=== PATIENT | male | born 1975 | race Caucasian/White ===

== ENCOUNTER 2022-02-23 03:19 | Observation (INO) | payer OTHER, SELFPAY ==
[2022-02-23] VITALS (16 sets, daily range): BP systolic 109–166; BP diastolic 66–111; PULSE 51–86; RESP 15–21; TEMP 36.5–37.2; O2SAT 92–100; BMI 28.8; BMI 31.1
--- NOTE | 2022-02-23 03:31 | CT_ITS ---
STUDY: CT ABDOMEN AND PELVIS WITH CONTRAST REASON FOR EXAM: Male, 46 years old. pain RADIATION DOSAGE (If Supplied By Facility): CTDIvol = ( 17.96 ) mGy, DLP = ( 1284.05 ) mGycm TECHNIQUE: Transaxial images were obtained from the dome of the diaphragm to the symphysis pubis without oral contrast. IV 100mL Isovue-300 was administered. Sagittal and coronal images were reconstructed. Individualized dose optimization techniques were used for this CT. COMPARISON: None. FINDINGS: LOWER CHEST: Dependent atelectasis. LIVER: Several small cysts, largest 2.5 cm. GALLBLADDER/BILE DUCTS: Gallbladder distended, prominent wall with mild adjacent stranding. Questionable noncalcified stone in the gallbladder neck. PANCREAS: Relatively enlarged head and uncinate process with minimal adjacent stranding. SPLEEN: Unremarkable. ADRENAL GLANDS: Unremarkable. KIDNEYS / URETERS: Unremarkable. BOWEL / MESENTERY: Dilated duodenum second through fourth portion mildly dilated small bowel in the upper to mid abdomen. No definite transition zone. Scattered diverticula in the colon. No bowel obstruction. APPENDIX: Identified and normal. No evidence of acute appendicitis. PERITONEUM: No free air. No free fluid. VESSELS: Abdominal aorta is normal caliber. RETROPERITONEUM: Unremarkable. REPRODUCTIVE ORGANS: Unremarkable. BLADDER: Unremarkable. ABDOMINAL WALL: Unremarkable. BONES: Bilateral pars defects at L5 with grade 1 spondylolisthesis at L5-S1, and degenerative changes. OTHER: None. CT/Abdomen/Pelvis W IV Cont ONLY IMPRESSION: Findings suggest acute cholecystitis. Ultrasound correlation may be helpful for confirmation. Mild relatively enlarged pancreatic head questionable mild component of pancreatitis. Follow-up recommended. Mildly dilated duodenum and proximal small bowel ileus versus enteritis. Electronically Signed: Maryanne Villanueva MD at 4:35 EDT ,
--- NOTE | 2022-02-23 03:31 | EKG12_ITS ---
Test Reason : CP Blood Pressure : / mmHG Vent. Rate : 063 BPM Atrial Rate : 063 BPM P-R Int : 178 ms QRS Dur : 102 ms QT Int : 394 ms P-R-T Axes : 044 080 057 degrees QTc Int : 403 ms Normal sinus rhythm Normal ECG Confirmed by JAMEL MEDEROS MD ([id number]), newspaper or periodical editor GEE HERNANDEZ ([id number]) on 02/25/2022 1:15:40 PM Referred By: PL Confirmed By:JAMEL MEDEROS MD
--- NOTE | 2022-02-23 03:32 | ED.VIS.CHEST ---
HPI History of Present Illness Chief Complaint: Chest Pain Informant: patient Narrative Narrative: Patient complains of primary epigastric pain. It started about 1930 yesterday. Therefore, its been going on about 8 hours. It initially was waxing and waning but never went away. He tried to sleep. He got about 40 minutes but then he woke up. It is worse now. He has some nausea but no vomiting. He is not short of breath when he takes a deep breath his abdomen is more sore. But he does not have chest pain. The pain is in epigastric and radiates to both sides. It does not go through to his back. It really does not go up into his chest. No fevers or chills. No diaphoresis. He ate hibachi prior to this. He denies history of biliary disease. He is a smoker but he has no high blood pressure, diabetes, cholesterol or family history of heart disease. No history of prior abdominal surgery. Nothing really makes this better. Pressing on it does make it worse. PFSH PFSH Medical History Acute chest pain Chest pain Shortness of breath Tobacco dependence Medical History no medical history Home Medications NK 02/23/22 [History Last Taken Unknown] Allergy/AdvReac Type Severity Reaction Status Date / Time No Known Allergies Allergy Verified 08/26/17 04:22 Family History Grandmother Myocardial infarction Hypertension Surgical History H/O knee surgery Social History Smoking Status: Current every day smoker tobacco type: cigarettes alcohol intake: never substance use type: does not use ROS ROS ED Constitutional Constitutional ED: Denies chills or fever(s) Eyes Eyes: Denies blurry vision ENT ENT ED: Denies rhinorrhea or sore throat Cardiovascular Cardiovascular: Denies chest pain, palpitations or racing heartbeat Respiratory/Chest Respiratory/Chest: Denies cough or sputum Gastrointestinal Gastrointestinal: Reports abdominal pain and nausea; Denies constipation, diarrhea, melena or vomiting Genitourinary Genitourinary ED: Denies dysuria Musculoskeletal Musculoskeletal: Denies back pain or myalgias Integumentary Denies rash Neurologic Neurologic: Denies headache(s) Psychiatric Psychiatric: Denies anxiety or depression Endocrine Endocrinology: Denies polydipsia or polyuria Hematologic/Lymphatic Hematologic/Lymphatic: Denies easy bleeding or easy bruising Allergic/Immunologic Allergic/Immunologic ED: Denies urticaria EXAM Physical Exam Const Vital Signs: 02/23/22 03:20 Temperature 98.1 F Temperature Source Temporal Pulse Rate 64 Respiratory Rate 21 H Blood Pressure 132/83 H Blood Pressure Mean 99 Pulse Ox 92 Oxygen Delivery Method Room Air Positive well nourished and well developed Constitutional Narrative: Patient does look slightly uncomfortable. General Appearance ED: well developed HEENT Reports moist mucous membranes normocephalic Eyes General Eye ED: Negative for pale conjunctiva or scleral icterus Neck no JVD Chest Wall inspection of chest normal and palpation of chest normal Chest: Negative for tenderness Resp normal respiratory effort and clear to auscultation bilaterally Effort and Inspection: Negative for respiratory distress Auscultation: Negative for rales, rhonchi or wheezes Cardio regular rate and regular rhythm GI normal to inspection, nondistended, normoactive bowel sounds and soft to palpation GI Narrative: Bowel sounds are normal. He does have tenderness in the epigastric. He has right upper quadrant tenderness. Very minimal left upper quadrant. He states when I press in the lower abdomen he feels it in the upper abdomen but he is not tender down low. There is no rebound or guarding or mass felt Back/Spine no CVA tenderness Extremity normal to inspection General Extremety ED: Negative for edema or tenderness General Extremity: Negative for edema Neuro Sensorium / Orientation: awake and alert Psych mental status grossly normal Skin no rashes or lesions noted General Skin Exam: Negative for jaundice MDM MDM MDM Narrative Medical decision making narrative: Patient's blood work is actually quite normal. White count hemoglobin and platelets are normal. Electrolytes show some mild elevation of his glucose but otherwise essentially normal. Liver function test are not elevated. Troponin is negative despite over 8 hours of symptoms. Lipase is negative. His CAT scan does show a stone in the gallbladder neck, slight thickening of the wall and some pericholecystic stranding. There is also hinting of either ileus or enteritis with duodenum mildly distended. Although this patient's labs are normal, he does have pain, nausea, dry heaves and findings consistent with acute cholecystitis. His volunteers that he has been having episodes of a lower chest pain that she was wondering may be related to gallbladder. I discussed the case with Dr. Kramer. Patient will be admitted. Plan will be cholecystectomy later today. Lab Data Attestation: I reviewed the patient's lab results. Labs: Laboratory Results - last 24 hr 02/23/22 02/23/22 03:25 03:25 WBC 10.6 RBC 5.21 Hgb 15.6 Hct 45.7 MCV 87.7 MCH 29.9 MCHC 34.1 RDW Std Deviation 39.5 RDW Coeff of Sharon 12.2 Plt Count 213 MPV 11.0 Immature Gran % (Auto) 0.300 Neut % (Auto) 74.3 H Lymph % (Auto) 18.0 L [place] % (Auto) 5.9 Eos % (Auto) 1.1 Baso % (Auto) 0.4 Absolute Neuts (auto) 7.9 H Absolute Lymphs (auto) 1.91 Nucleated RBC % 0 Sodium 140 Potassium 3.9 Chloride 109 H Carbon Dioxide 25.0 Anion Gap 6 BUN 14 Creatinine 1.16 Estim Creat Clear Calc 79.57 Est GFR (MDRD) Af Amer 87 Est GFR (MDRD) Non-Af 72 BUN/Creatinine Ratio 12.1 Glucose 157 H Calcium 8.6 Total Bilirubin 0.30 AST 14 L ALT 29 Alkaline Phosphatase 69 Troponin I High Sens < 3 L Total Protein 7.0 Albumin 3.7 Globulin 3.3 Albumin/Globulin Ratio 1.1 Lipase 182 Radiography Diagnostic Testing: Clinical Impression(s) from Imaging Studies Abdomen/Pelvis CT 02/23/22 03:31 IMPRESSION: Findings suggest acute cholecystitis. Ultrasound correlation may be helpful for confirmation. Mild relatively enlarged pancreatic head questionable mild component of pancreatitis. Follow-up recommended. Mildly dilated duodenum and proximal small bowel ileus versus enteritis. Electronically Signed: Maryanne Villanueva MD at 4:35 EDT , EKG Initial EKG: Comments: EKG done for epigastric pain read by me shows normal sinus rhythm with a heart rate of 63. No ectopy. No acute ST elevation or depression and he was having symptoms during this EKG. AK interval, QRS duration and QTC normal Discharge Plan Triage Chief Complaint: Chest Pain ED Provider: Jesus Stevens Dx/Rx/DC Orders Clinical Impression: Acute cholecystitis Prescriptions: No Action NK RF: 0 Primary Care Provider: Care Physician,No Primary Referrals: Care Physician,No Primary [Primary Care Provider] - Disposition Disposition: Acute Care Hospital [facility]
[2022-02-23 03:37] LABS: Absolute Lymphocyte Count 1.91 X10^3/uL (0.83-4.51); Absolute Neutrophil Count 7.9 X10^3/uL (2.0-7.7); Basophil# 0.04 X10^3/uL; Basophil% 0.4 % (0-1); Eosinophil# 0.12 X10^3/uL; Eosinophils% 1.1 % (0-5); Hematocrit 45.7 % (40-54); Hemoglobin 15.6 g/dL (13.0-16.5); Lymphocyte # 1.91 X10^3/ul (0.83-4.51); Mean Corp Hgb Conc 34.1 g/dL (32-36); Mean Corpuscular Hgb 29.9 pg (27.0-32.0); Mean Corpuscular Volume 87.7 fL (80-94); Monocyte# 0.63 X10^3/uL; Monocyte% 5.9 % (0-10); NRBC Flagged by Analyzer 0 % (0-5); Neutrophil # 7.88 X10^3/uL (2.7-7.7); Neutrophil % 74.3 % (47-70); Platelet Count 213 K/mm3 (150-450); RBC Distribution Width CV 12.2 % (11.6-14.6); RBC Distribution Width SD 39.5 fl (35.1-43.9); Red Blood Count 5.21 M/mm3 (4.6-6.2); White Blood Count 10.6 K/mm3 (4.4-11.0)
[2022-02-23] MEDS: Ondansetron 4 MG/2 ML Vial IV (03:38)
[2022-02-23] MEDS: 0.9% Normal Saline 1,000 ML 1000 ML IV (03:38)
[2022-02-23] MEDS: Morphine 4 MG/ML Syringe IV ×2 (03:39→17:44)
[2022-02-23 04:00] LABS: ALB/GLOB Ratio 1.1 RATIO (0.9-2.4); AST(SGOT) 14 U/L (15-37); Alanine Aminotransfer ALT/SGPT 29 U/L (16-61); Albumin, Serum 3.7 g/dL (3.2-5.0); Alkaline Phosphatase 69 U/L (45-117); Anion Gap 6 (5-15); BUN 14 mg/dL (7-18); BUN/Creat Ratio 12.1 RATIO (10-20); Calcium,Total 8.6 mg/dL (8.5-10.1); Chloride 109 mmol/L (98-107); Creatinine, Serum 1.16 mg/dL (0.70-1.30); EST Glomerular Filtration Rate 72 mL/min (>60); Est Glom Filt Rate - Afr Amer 87 mL/min (>60); Estimated Creatinine Clearance 79.57 ml/min; Globulin 3.3 g/dL (2.2-4.2); Glucose 157 mg/dL (74-106); Lipase 182 U/L (73-393); Potassium 3.9 mmol/L (3.5-5.1); Sodium Level 140 mmol/L (136-145); Troponin-I HS < 3 pg/mL (3.0-78.0)
[2022-02-23] MEDS: Morphine 2 MG/ML Syringe IV (06:25)
[2022-02-23] MEDS: 0.9% Normal Saline 1,000 ML 125 ML IV ×2 (06:25→12:34)
--- NOTE | 2022-02-23 06:59 | PCM.HP.STD ---
HPI - General General Date of Admission: 02/23/22 HPI Narrative HAYLEY BARRON, is a 46 M who presents With lower chest pain that started yesterday. The patient did have nausea but no vomiting. He denies fevers or chills. Patient does state the pain radiates down both sides of his abdomen. He has never had pain like this before. [facility] Medical History Acute chest pain Chest pain Shortness of breath Tobacco dependence Medical History no medical history Home Medications NK 02/23/22 [History Last Taken Unknown] Allergy/AdvReac Type Severity Reaction Status Date / Time No Known Allergies Allergy Verified 08/26/17 04:22 Family History Grandmother Myocardial infarction Hypertension Surgical History H/O knee surgery Social History Smoking Status: Current every day smoker tobacco type: cigarettes alcohol intake: never substance use type: does not use ROS Constitutional Constitutional: Denies anorexia or fatigue Eyes Eyes: Denies blurry vision ENT HEENT: Denies abnormal hearing Cardiovascular Cardiovascular: Reports chest pain Respiratory/Chest Respiratory/Chest: Denies cough Gastrointestinal Gastrointestinal: Reports abdominal pain and nausea; Denies change in bowel habits, melena, rectal bleeding or vomiting Genitourinary Genitourinary: Denies change in urinary stream Musculoskeletal Musculoskeletal: Denies abnormal gait Integumentary Integumentary: Denies jaundice Neurologic Neurologic: Denies dizziness Psychiatric Psychiatric: Denies anxiety Endocrine Endocrinology: Denies flushing Hematologic/Lymphatic Hematologic/Lymphatic: Denies easy bleeding Vital Signs Vital Signs Vital Signs: 02/23/22 03:20 02/23/22 06:02 02/23/22 06:30 Temperature 98.1 F 98.7 F 97.8 F Temperature Source Temporal Temporal Oral Pulse Rate 64 86 69 Respiratory Rate 21 H 20 H 16 Blood Pressure 132/83 H 115/79 110/70 Blood Pressure Mean 99 91 83 Blood Pressure Source Monitor Blood Pressure Position Semi-Fowlers Blood Pressure Location Left Arm Pulse Ox 92 99 96 Oxygen Delivery Method Room Air Room Air Room Air Weight Weight: 211 lb 3.245 oz Body Mass Index (BMI) 31.1 Physical Exam Const oriented x3 and no apparent distress Resp normal respiratory effort Cardio regular rate and regular rhythm GI soft to palpation Inspection: Negative for abdominal distention Palpation: tender epigastric Extremity normal to inspection Results Lab / Micro Data Result Diagrams: 02/23/22 03:25 02/23/22 03:25 Labs: Laboratory Results - last 24 hr 02/23/22 03:25: WBC 10.6, RBC 5.21, Hgb 15.6, Hct 45.7, MCV 87.7, MCH 29.9, MCHC 34.1, RDW Std Deviation 39.5, RDW Coeff of Sharon 12.2, Plt Count 213, MPV 11.0, Immature Gran % (Auto) 0.300, Neut % (Auto) 74.3 H, Lymph % (Auto) 18.0 L, [place] % (Auto) 5.9, Eos % (Auto) 1.1, Baso % (Auto) 0.4, Absolute Neuts (auto) 7.9 H, Absolute Lymphs (auto) 1.91, Nucleated RBC % 0 02/23/22 03:25: Sodium 140, Potassium 3.9, Chloride 109 H, Carbon Dioxide 25.0, Anion Gap 6, BUN 14, Creatinine 1.16, Estim Creat Clear Calc 79.57, Est GFR (MDRD) Af Amer 87, Est GFR (MDRD) Non-Af 72, BUN/Creatinine Ratio 12.1, Glucose 157 H, Calcium 8.6, Total Bilirubin 0.30, AST 14 L, ALT 29, Alkaline Phosphatase 69, Troponin I High Sens < 3 L, Total Protein 7.0, Albumin 3.7, Globulin 3.3, Albumin/Globulin Ratio 1.1, Lipase 182 Micro: Microbiology 02/23/22 06:00 Interface Orders SARS-CoV-2 Antigen (Rapid) - Final Radiology Impression Abdomen/Pelvis CT 02/23/22 03:31 IMPRESSION: Findings suggest acute cholecystitis. Ultrasound correlation may be helpful for confirmation. Mild relatively enlarged pancreatic head questionable mild component of pancreatitis. Follow-up recommended. Mildly dilated duodenum and proximal small bowel ileus versus enteritis. Electronically Signed: Maryanne Villanueva MD at 4:35 EDT , Assessment & Plan Assessment/Plan (1) Acute cholecystitis: PLAN: The patient has epigastric and lower chest pain that started yesterday. Cardiac work-up was normal in the emergency room. Patient has CT scan which showed some stranding and dilation of the gallbladder with a stone in the neck of the gallbladder. Patient also has a mildly elevated white count with left shift. I admitted the patient and started him on antibiotics and IV fluids. I will plan for laparoscopic cholecystectomy this afternoon. I discussed the procedure in detail with the patient. I discussed the risks, benefits, and alternatives of the procedure. I discussed the risks including but not limited to bleeding, infection, injury to surrounding organs such as the liver, bile duct, bowels. I did discuss the possibility of having to convert to an open procedure as well as the possibility that if any injuries occurred this may necessitate further surgery at a tertiary care center. Humphrey Kramer MD Pager: [facility] [address] [place] [address], [address] [place] [address] Office:
--- NOTE | 2022-02-23 13:30 | GALL_PTH ---
PATIENT: HAYLEY BARRON LOC: MS3 U#:[id number] AGE/SX: 46/M ROOM: CA318 RE02/23/[address]: Dr. Humphrey Kramer MD : 1975 BED: 1 DIS: 02/24/2022 SPEC #: [id number] RECD: 02/25/22 07:46 STATUS: KATHY REAniya #: [id number] DEEDEE: 02/23/22 13:[address]: Humphrey Kramer DEPT: SURGICAL PATHOLOGY RECD BY: Gena Nolasco ENTERED: 02/25/22 09:10 SP TYPE: MARILYN SHEIKH DR: No Primary Care Phys Tissues: Gallbladder, NOS Procedures: Surgery Specimen Level III HEADER OPERATION: Laparoscopic cholecystectomy with IOC PRE-OP DIAGNOSIS: Acute cholecystitis TISSUE SUBMITTED: Gallbladder MICROSCOPIC DIAGNOSIS Gallbladder, cholecystectomy: Chronic cholecystitis and cholelithiasis. Benign pericystic lymph node. AM:werner 02/26/2022 MICROSCOPIC DESCRIPTION Slides are reviewed. GROSS DESCRIPTION Received is one container labeled with the patient's name and designated gallbladder. The specimen consists of a gallbladder measuring 9.5 x 3.5 x 3.5 cm. The external surface is smooth and glistening. Focally, it is granular, hemorrhagic and contains cautery artifact. The lumen of the gallbladder contains a large amount of green mucoid bile and a single crystalline yellow-robin calculus measuring 1.6 cm in diameter. The mucosa is bile-stained and without any mass lesions. The gallbladder wall averages 0.1 cm in thickness and is free of mass lesions. A pericystic nodule measuring 1.3 cm is present and grossly resembles a lymph node. Bodily Injury Adjuster sections of the gallbladder and the cystic duct at margin of resection are submitted in one cassette. / AM:werner 02/25/2022 TC:3 CPT: 10221
--- NOTE | 2022-02-23 13:47 | RAD_ITS ---
CLINICAL HISTORY: Male, 46 years old. Abdominal pain PROCEDURE: CHOLANGIOGRAM - intraoperative FLUOROSCOPY TIME (if supplied): (7.7) minutes/seconds TECHNIQUE: (All elements of maximal sterile barrier technique followed, including US elements as applicable) 7.7 seconds of fluoroscopy of the abdomen was utilized and operating room during an intraoperative cholangiogram and a single cine run is submitted for interpretation. Next FINDINGS: A cannula seen within the cystic duct remnant. There is no evidence of filling defect within the common bile duct to suggest common bile duct stone. No stricture or dilatation. Passage of contrast through the ampulla into the duodenum. RAD/Cholangiogram/ O R,Initial IMPRESSION: No common bile duct stone. Electronically Signed: Vito Zarate MD at 14:31 EDT ,
[2022-02-23] MEDS: Bupivacaine Mpf 0.5% 30 ML VIAL (14:20)
--- NOTE | 2022-02-23 14:21 | PCM.OPRPT ---
Problems Associated Problem List Diagnoses (1) Acute cholecystitis: Report of Operation Date of Procedure: 02/23/22 Pre-Operative Diagnosis: Acute cholecystitis Post-Operative Diagnosis: Same Surgery/Procedure Performed:: Laparoscopic cholecystectomy with cholangiogram Specimen's removed: Gallbladder and contents Description of Procedure: After obtaining informed consent patient was brought back to the operating room. General anesthesia was induced. The abdomen was prepped and draped in usual sterile fashion. A small midline incision was made superior to the umbilicus and deepened to the level of fascia. The fascia was elevated and incised. Next the peritoneum was elevated and incised in the same fashion. Finger sweep was performed and the Weeks trocar was placed into the abdomen. The balloon was inflated. The abdomen was inflated to 15 mmHg. Next a camera was introduced into the abdomen and the abdomen was inspected. Next under direct visualization three 5-mm ports were placed one subxiphoid and 2 subcostal. Next the gallbladder was elevated and retracted toward the right shoulder. The peritoneum was stripped from the gallbladder. The infundibulum was located and retracted laterally. Next the triangle of Calot was dissected and the cystic duct and cystic artery were identified. Cholangiograms were performed. The Ventura clamp was used to clamp across the infundibulum and the catheter needle was inserted into the gallbladder. Under fluoroscopy contrast was instilled into the gallbladder and the common duct, cystic duct as well as proximal hepatic ducts were identified. There was good filling of the duodenum. There were no filling defects noted in the common bile duct. The clamp was removed as well as the needle and the infundibulum was grasped once more. Three hemolock clips were placed across the cystic duct. The cystic duct was then divided leaving 2 clips on the stump. The cystic artery was clipped and divided in the same fashion. The hook cautery was then used to take the gallbladder off of the gallbladder bed. Hemostasis was obtained. Gallbladder fossa was irrigated and no active bleeding or bile leakage was noted. Next the camera was introduced in the subxiphoid port. An Endopouch bag was placed through the umbilical port and the gallbladder was placed into it. The gallbladder was then removed through the umbilical incision. The camera was then reinserted through the umbilical port. The gallbladder fossa was inspected once more and noted to be hemostatic with no leaking bile. The abdomen was suctioned dry. The 5 mm ports were removed under direct visualization. The umbilical port was then removed and the air was removed from the abdomen. Next using an 0 Vicryl suture the umbilical fascia was closed in a [id number] fashion. The umbilical port site was irrigated local anesthetic was administered to all the incisions. All the incisions were closed with interrupted subcuticular 4-0 Monocryl sutures followed by Steri-Strips and dressings. The patient was awoken and taken to PACU in stable condition. Admit VTE Documentation VTE Mechan Device Prophylaxis: SCD's
--- NOTE | 2022-02-23 14:22 | EX.PCM.DISCH ---
Discharge Instructions Procedure Gallbladder Diet Discharge Diet: Light diet - advance as tolerated Activity Discharge Activity: May Not Drive (for 2-3 days or while taking narcotic pain medications.) and - (Do not drive, work heavy equipment or sign legal documents for 24 hours.) May shower in (days): 1 Lifting Restrictions: 20 lbs for 2 weeks Additional Activity Instructions:: Pain medication may cause nausea. You should typically eat light foods as you take your pain medications. Pain medication may also cause constipation. If this is a problem for you, please discuss with your doctor. Dressing / Incision Call your doctor if your incision/area has: Continuous Slow Oozing, Sudden Increased Bleeding, Increased Pain/ Swelling, Increased Redness and Foul Smelling Discharge Call your doctor if you observe: Fever of 101 or Higher Suture Line Care: Avoid Pulling/Pushing and Avoid Pinching/Bending Remove Dressing in: 2 days Additional Dressing/Incision Instructions:: Leave operative bandaids on for 2 days. When you remove dressing, leave Steri-Strips on until your follow-up appointment, or until the Steri-Strips fall off on their own. Follow Up Care Please Follow Up With: Humphrey Kramer MD When: Please call to schedule 2 week follow up appointment. [phone] Test Results: Test results from this visit will be discussed in further detail at your follow-up appointment, if applicable. Discharge Plan Admission Admit Date/Time: 02/23/22 05:07 Attending Provider: Humphrey Kramer Primary Care Provider: Elijah Physician,Zoila Primary Discharge Orders/Prescriptions Prescriptions: New oxycodone 5 mg Tablet 5 - 10 mg PO Q4H PRN PRN (Reason: Pain Score 4-10/10) 5 Days Qty: 30 RF: 0 Referrals / Follow Up: Care Physician,No Primary [Primary Care Provider] - Disposition Disposition (needs filled in before D/C Order can be placed): Home, Self Care
[2022-02-23] MEDS: Lactated Ringers 1,000 ML 100 ML IV (15:23)
[2022-02-23] MEDS: 0.9% Saline Lock 10 ML Syringe IV ×2 (17:44→19:39)
[2022-02-23] MEDS: oxyCODONE 5 MG Tablet PO (19:39)
[2022-02-24] MEDS: oxyCODONE 5 MG Tablet PO ×3 (01:20→10:07)
[2022-02-24] MEDS: Lactated Ringers 1,000 ML 100 ML IV (03:41)
[2022-02-24 03:50] VITALS: BP 139/84; PULSE 57; RESP 16; TEMP 36.8; O2SAT 93
[2022-02-24] MEDS: 0.9% Saline Lock 10 ML Syringe IV (05:13)
[2022-02-24 08:29] VITALS: BP 116/89; PULSE 45; RESP 16; TEMP 37.1; O2SAT 96
== END 2022-02-24 11:07 | disposition home or self-care (01) ==
LOC: ED 05:19 → MS3 05:28
PROVIDERS: Admitting Provider Surgery; Emergency Provider Emergency Medicine; Visit Provider Surgery
PROC: (CPT 47610; principal; 2022-02-23 13:30)
DX: K80.12 Calculus of gallbladder with acute and chronic cholecystitis without obstruction (principal); F17.210 Nicotine dependence, cigarettes, uncomplicated
CPT/HCPCS: 47563; 00790; 74177; 74300; 76000; 80053; 83690; 84484; 85025; 87426; 88304; 93005; 96361; 96365; 96366; 96375; 96376; 99285; J7030; J7050; J7120; Q9967; A4216; J2405

== ENCOUNTER 2025-04-07 12:42 | Emergency (ER) | payer OTHER, SELFPAY ==
[2025-04-07 12:42] VITALS: BP 142/93; PULSE 65; RESP 14; TEMP 36.6; O2SAT 98; BMI 27.6
[2025-04-07 13:07] LABS: Hematocrit 45.9 % (40-54); Hemoglobin 16.1 g/dL (13.0-16.5); Immature Granulocytes Count 0.020 X10^3/uL (0.0-0.0); Mean Corp Hgb Conc 35.1 g/dL (32-36); Mean Corpuscular Volume 86.6 fL (80-94); Mean Platelet Vol. 11.0 fl (6.2-12.0); NRBC Flagged by Analyzer 0 % (0-5); Platelet Count 202 K/mm3 (150-450); RBC Distribution Width CV 12.3 % (11.6-14.6); RBC Distribution Width SD 39.0 fl (35.1-43.9); Red Blood Count 5.30 M/mm3 (4.6-6.2); White Blood Count 7.5 K/mm3 (4.4-11.0)
[2025-04-07 13:39] LABS: Anion Gap 11 (5-15); BUN 8 mg/dL (4-19); BUN/Creat Ratio 7.5 RATIO (10-20); Calcium,Total 9.2 mg/dL (7.6-11.0); Carbon Dioxide 22.9 mmol/L (21.0-32.0); Chloride 106 mmol/L (98-108); Estimated Creatinine Clearance 85.10 ml/min (50-250); Glucose 108 mg/dL (70-99); Potassium 3.9 mmol/L (3.3-5.1)
[2025-04-07 13:41] LABS: Troponin T High Sensitivity 8 ng/L (<=22)
--- OUTSIDE RECORDS SUMMARY | 2025-04-07 19:56 | XMS RPT_ITS | CCD ---
Author Organization [facility] Care Team Providers Care Health Care Consultant Name Role Phone Care Physician, No Primary Primary Care Provider Unavailable Dr. Jesus Stevens Emergency Provider [phone] Dr. Humphrey Kramer Admit Provider Dr. Humphrey Kramer Attending Provider [phone] Dr. Humphrey Kramer Other Provider Care Physician, No Primary Referring Unava illorena Care Physician, No Primary Primary Care Andres Samayoa Attending Unavailable Care Physician, No Primary Primary Care Provider Unavailable Provider, Ed Physician Emergency Provider Unavai lable Medications Current Medications Medication Drug Class(es) Dates Sig (Normalized) Sig (Original) oxyCODONE hydrochloride 5 mg oral tablet (2 sources) Opioid Agonist Start: 02-23-2022 End: 03-10-2022 take 5-10 mg by mouth every four hours as needed Oxycodone Active 5 - 10 MG PO EVERY 4 HOURS NEEDED 30 5 February 23, 2022 2:22pm Problems Problem Classification Problem Date Documented Da te Episodic/Chronic Biliary tract disease (4 sources) Acute cholecystitis; Translations: [Acute cholecystitis] Episodic Nonspecific chest pain (4 sources) Acute chest pain; Translations: [Chest pain, unspecified] 10-21-2017 Episodic Other lower respiratory disease (2 sources) Dyspnea; Translations: [Shortness of breath] 10-21-2017 Episodic Substance-related disorders (2 sources) Tobacco dependence syndrome; Translations: [Nicotine dependence, unspecified, uncomplicated] 10-21-2017 Chronic Results Test Name Value Interpretation Reference Range Facility Absolute lymphocyte countOrd ered By: ED PROVIDER on 04-07-2025 Lymphocytes Auto (Unsp spec) [#/Vol] 1.86 10*3/uL 0.83-4.51 [facility] Absolute neutrophil countOrd ered By: ED PROVIDER on 04-07-2025 Neutrophils (Bld) [#/Vol] 5.0 10*3/uL 2.0-7.7 [facility] Automated lymphocyte count a s percentage of total leukocytesOrdered By: ED PROVIDER on 04-07-2025 Lymphocytes/100 WBC Auto (Unsp spec) 24.9 % 19-41 [facility] Basophil percentageOrdered B y: ED PROVIDER on 04-07-2025 Basophils/100 WBC (Bld) 0.4 % 0-1 [facility] Eosinophil percentageOrdered By: ED PROVIDER on 04-07-2025 Eosinophils/100 WBC (Bld) 0.8 % 0-5 [facility] Erythrocyte distribution wid th ratioOrdered By: ED PROVIDER on 04-07-2025 Erythrocyte distribution width (RBC) [Ratio] 12.3 % 11.6-14.6 [facility] Erythrocyte distribution wid th standard deviationOrdered By: ED PROVIDER on 04-07-2025 Erythrocyte distribution width (RBC) [Ratio] 39.0 fl 35.1-43.9 [facility] Hematocrit Auto (Bld) [Volum e fraction]Ordered By: ED PROVIDER on 04-07-2025 Hematocrit (Bld) [Volume fraction] 45.9 % 40-54 [facility] Hemoglobin measurementOrdere d By: ED PROVIDER on 04-07-2025 Hemoglobin (Bld) [Mass/Vol] 16.1 g/dL 13.0-16.5 [facility] Immature granulocytes/100 WB C Auto (Bld)Ordered By: ED PROVIDER on 04-07-2025 Immature granulocytes/100 WBC (Bld) 0.300 % 0.0-0.9 [facility] Comment on above: IG% - Immature Granu locytes (promyelocytes, myelocytes and metamyelocytes) > 1% indicates that a LEFT SHIFT is Present. MCV (mean corpuscular volume ) determinationOrdered By: ED PROVIDER on 04-07-2025 MCV (RBC) [Entitic vol] 86.6 fL 80-94 [facility] Mean corpuscular hemoglobin (MCH) determinationOrdered By: ED PROVIDER on 04-07-2025 MCH (RBC) [Entitic mass] 30.4 pg 27.0-32.0 [facility] Mean corpuscular hemoglobin concentration (MCHC) determinationOrdered By: ED PROVIDER on 04-07-2025 MCHC (RBC) [Mass/Vol] 35.1 g/dL 32-36 [facility] Mean platelet volume determi nationOrdered By: ED PROVIDER on 04-07-2025 Platelet mean volume (Bld) [Entitic vol] 11.0 fL 6.2-12.0 [facility] Monocyte percentageOrdered B y: ED PROVIDER on 04-07-2025 Monocytes/100 WBC (Bld) 6.0 % 0-10 [facility] Neutrophil percentageOrdered By: ED PROVIDER on 04-07-2025 Neutrophils/100 WBC (Bld) 67.6 % 47-70 [facility] Nucleated red blood cell per centageOrdered By: ED PROVIDER on 04-07-2025 Nucleated RBC/100 WBC (Bld) [Ratio] 0 % 0-5 [facility] Platelet countOrdered By: ED PROVIDER on 04-07-2025 Platelets (Bld) [#/Vol] 202 10*3/uL 150-450 [facility] RBC Auto (Bld) [#/Vol]Ordere d By: ED PROVIDER on 04-07-2025 RBC (Bld) [#/Vol] 5.30 10*6/uL 4.6-6.2 [facility] White blood cell (WBC) count Ordered By: ED PROVIDER on 04-07-2025 WBC (Bld) [#/Vol] 7.5 10*3/uL 4.4-11.0 [facility] Office Visit Reporton [address] [facility] [address] [place] [address] OFFICE VISIT Date of Service: 10/21/24 MR#: [id number] Acct: [id number] Patient: HAYLEY BARRON Rep #: [id number] : 1975 Provider: DARIEN White Age/Sex: 49/M Location: [facility] Status: Signed Intake Vital Signs 02/23/22 12:23 Height 5 ft 9 in Intake Visit Reasons: PE NON DOT DRUG SCREEN/ PRECISION PRODUCTS Chief Complaint: F/U Gallbladder Allergies No Known Allergies Allergy (Verified 03/10/22 08:02) Office Procedures [facility] Billing Sheet Testing Pre-Employment Drug Screen: Yes 11/11/24 1712 Date _ Andres Jane Signature: Date _ (if applicable) CC: Normal [facility] Absolute lymphocyte counton 02-23-2022 Lymphocytes Auto (Unsp spec) [#/Vol] 1.91 10*3/uL 0.83-4.51 [facility] Work Phone: Basophil percentageon 2021 Basophils/100 WBC (Bld) 0.4 % 0-1 [facility] Work Phone: Bilirubin [Mass/Vol] 0.30 mg/dL 0.20-1.00 [facility] Work Phone: Comment on above: For patients on eltr ombopag therapy, use of Dimension [place] TBIL is not recommended. Chloride [Moles/Vol] 109 mmol/L 98-107 [facility] Work Phone: Eosinophils/100 WBC (Bld) 1.1 % 0-5 [facility] Work Phone: Glucose [Mass/Vol] 157 mg/dL 74-106 [facility] Work Phone: Comment on above: Fasting Glucose resu lt greater than or equal to 126 mg/dL suggests DIABETES MELLITUS per A.D.A. criteria. Neutrophils (Bld) [#/Vol] 7.9 10*3/uL 2.0-7.7 [facility] Work Phone: Neutrophils/100 WBC (Bld) 74.3 % 47-70 [facility] Work Phone: Potassium [Moles/Vol] 3.9 mmol/L 3.5-5.1 [facility] Work Phone: Protein [Mass/Vol] 7.0 g/dL 6.4-8.2 [facility] Work Phone: Sodium [Moles/Vol] 140 mmol/L 136-145 [facility] Work Phone: WBC (Bld) [#/Vol] 10.6 10*3/uL 4.4-11.0 [facility] Work Phone: Blood erythrocytes count (nu mber/volume)on 02-23-2022 RBC (Bld) [#/Vol] 5.21 10*6/uL 4.6-6.2 [facility] Work Phone: Blood hemoglobin measurement (mass/volume)on 02-23-2022 Hemoglobin (Bld) [Mass/Vol] 15.6 g/dL 13.0-16.5 [facility] Work Phone: Blood lymphocytes/100 leukoc yteson 02-23-2022 Lymphocytes/100 WBC (Bld) 18.0 % 19-41 [facility] Work Phone: Blood monocytes/100 leukocyt eson 02-23-2022 Monocytes/100 WBC (Bld) 5.9 % 0-10 [facility] Work Phone: Blood platelet mean volumeon 02-23-2022 Platelet mean volume (Bld) [Entitic vol] 11.0 fL 6.2-12.0 [facility] Work Phone: Determination of erythrocyte mean corpuscular volume (MCV)on 02-23-2022 MCV (RBC) [Entitic vol] 87.7 fL 80-94 [facility] Work Phone: Hematocrit Auto (Bld) [Volum e fraction]on 02-23-2022 Hematocrit (Bld) [Volume fraction] 45.7 % 40-54 [facility] Work Phone: Laboratory - Chemistry and C hemistry - challengeon 02-23-2022 ALP [Catalytic activity/Vol] 69 U/L 45-117 [facility] Work Phone: ALT [Catalytic activity/Vol] 29 U/L 16-61 [facility] Work Phone: CO2 [Moles/Vol] 25.0 mmol/L 21.0-32.0 [facility] Work Phone: Globulin (S) [Mass/Vol] 3.3 g/dL 2.2-4.2 [facility] Work Phone: Lipase [Catalytic activity/Vol] 182 U/L 73-393 [facility] Work Phone: Urea nitrogen/Creatinine [Mass ratio] 12.1 mg/mg 10-20 [facility] Work Phone: Laboratory - Hematology and Cell countson 02-23-2022 Erythrocyte distribution width (RBC) [Entitic vol] 39.5 fL 35.1-43.9 [facility] Work Phone: Erythrocyte distribution width (RBC) [Ratio] 12.2 % 11.6-14.6 [facility] Work Phone: Immature granulocytes/100 WBC (Bld) 0.300 % 0.0-0.9 [facility] Work Phone: Comment on above: IG% - Immature Granu locytes (promyelocytes, myelocytes and metamyelocytes) > 1% indicates that a LEFT SHIFT is Present. MCH (RBC) [Entitic mass] 29.9 pg 27.0-32.0 [facility] Work Phone: Nucleated RBC/100 WBC (Bld) [Ratio] 0 % 0-5 [facility] Work Phone: MCHC Auto (RBC) [Mass/Vol]on 02-23-2022 MCHC (RBC) [Mass/Vol] 34.1 g/dL 32-36 [facility] Work Phone: No Panel Informationon 02-23 Estimated Creatinine Clearance Calc 79.57 ml/min [facility] Work Phone: Estimated GFR (MDRD) Amer 87 mL/min >60 [facility] Work Phone: Comment on above: GFR Calc Estimated GFR (MDRD) Non-Af Amer 72 mL/min >60 [facility] Work Phone: Comment on above: Non- GFR Calc Troponin I High Sensitivity < 3 pg/mL 3.0-78.0 [facility] Work Phone: Comment on above: Please Note: New Geno t Units and Gender Specific Reference Ranges. For more information see Policy Stat Procedure [place] High Sensitivity Troponin (TNIH) and attachments. Platelets bldon 02-23-2022 Platelets (Bld) [#/Vol] 213 10*3/uL 150-450 [facility] Work Phone: Serum or plasma albumin leanne urement (mass/volume)on 02-23-2022 Albumin [Mass/Vol] 3.7 g/dL 3.2-5.0 [facility] Work Phone: Serum or plasma albumin/glob ulin mass ratioon 02-23-2022 Albumin/Globulin [Mass ratio] 1.1 {ratio} 0.9-2.4 [facility] Work Phone: Serum or plasma calcium leanne urement (mass/volume)on 02-23-2022 Calcium [Mass/Vol] 8.6 mg/dL 8.5-10.1 [facility] Work Phone: Serum or plasma creatinine m easurement (mass/volume)on 02-23-2022 Creatinine [Mass/Vol] 1.16 mg/dL 0.70-1.30 [facility] Work Phone: Comment on above: The validity of the calculated GFR & GFRAA in patients over 70 years has not been determined. Clinical correlation is essential. Serum or plasma urea nitroge n measurement (mass/volume)on 02-23-2022 Urea nitrogen [Mass/Vol] 14 mg/dL 7-18 [facility] Work Phone: Thin prep Papanicolaou smear with manual screeningon 02-23-2022 Thin prep Papanicolaou smear with manual screening 14 U/L 15-37 [facility] Work Phone: Thin prep Papanicolaou smear with manual screening 6 5-15 [facility] Work Phone: Vital Signs Date Time Vital Sign Value Performing Clinician Brant mendez 04-07-2025 12:42-0400 Body height 175.26 cm No Primary Care Physician [facility] 04-07-2025 12:42-0400 Body mass index (BMI) [Ratio] 27.6 kg/m2 No Primary Care Physician [facility] 04-07-2025 12:42-0400 Body temperature 98 [degF] No Primary Care Physician [facility] 04-07-2025 12:42-0400 Body weight 84.7 kg No Primary Care Physician [facility] 04-07-2025 12:42-0400 Diastolic blood pressure 93 mm[Hg] No Primary Care Physician [facility] 04-07-2025 12:42-0400 Heart rate 65 /min No Primary Care Physician [facility] 04-07-2025 12:42-0400 Respiratory rate 14 /min No Primary Care Physician [facility] 04-07-2025 12:42-0400 SaO2% (BldA) [Mass fraction] 98 % No Primary Care Physician [facility] 04-07-2025 12:42-0400 Systolic blood pressure 142 mm[Hg] No Primary Care Physician [facility] 02-24-2022 08:29-0400 Body temperature 98.8 [degF] No Primary Care Physician [facility] Work Phone: 02-24-2022 08:29-0400 Diastolic blood pressure 89 mm[Hg] No Primary Care Physician [facility] Work Phone: 02-24-2022 08:29-0400 Heart rate 45 /min No Primary Care Physician [facility] Work Phone: 02-24-2022 08:29-0400 Respiratory rate 16 /min No Primary Care Physician [facility] Work Phone: 02-24-2022 08:29-0400 SaO2% (BldA) [Mass fraction] 96 % No Primary Care Physician [facility] Work Phone: 02-24-2022 08:29-040 Systolic blood pressure 116 mm[Hg] No Primary Care Physician [facility] Work Phone: 02-23-2022 12:23-040 Body height 175.26 cm No Primary Care Physician [facility] Work Phone: 02-23-2022 12:23-0400 Body mass index (BMI) [Ratio] 31.1 kg/m2 No Primary Care Physician [facility] Work Phone: 02-23-2022 12:-040 Body weight 95.8 kg No Primary Care Physician [facility] Work Phone: Encounters Encounter Date Encounter Type Care Provider Facility Start: 04-07-2025 End: 04-07-2025 Emergency department patient visit No Primary Care Physician -Emergency Department Work Phone: Start: 10-21-2024 End: 10-21-2024 ambulatory No Primary Care Physician Facility:[facility] Start: 02-23-2022 Non-patient / Non-visit No Krystal adrian Care Physician [facility] Start: 02-23-2022 End: 02-24-2022 Evaluation and management of inpatient No Primary Care Physician [facility] 3 Procedures Date Procedure Procedure Detail Performing Clinician Start: 02-23-2022 End: 02-23-2022 Viral antigen assay No Primary Care Physician Start: 02-23-2022 Cholangiogram No Primar y Care Physician Start: 02-23-2022 Fluoroscopic guidance N o Primary Care Physician Start: 02-23-2022 Total cholecystectom y and exploration of common bile duct No Primary Care Physician Start: 02-23-2022 Computed tomography of abdomen and pelvis with intravenous contrast No Primary Care Physician Plan of Treatment Date Care Activity Detail Author Start: 04-07-2025 [facility] Start: 04-07-2025 Plain chest X-ray Chest 1 View (Portable) [facility] Start: 04-07-2025 [facility] Anion gap in Serum o r Plasma [facility] BUN/Creatinine ratio [facility] Calcium [Mass/volume ] in Serum or Plasma [facility] Carbon dioxide, tota l [Moles/volume] in Central venous blood [facility] Creatinine [Mass/vol ume] in Serum or Plasma [facility] Glucose [Mass/volume ] in Serum or Plasma [facility] Measurement of renal function [facility] Patient referral [facility] Work Phone: Potassium measurement [facility] Serum chloride measurement [facility] Sodium measurement [facility] Troponin T.cardiac [Mass/volume] in Serum or Plasma by High sensitivity method [facility] Urea nitrogen [Mass/volume] in Serum or Plasma [facility] Payers Date Payer Category Payer Self-pay [id number] 2017 Unknown SELF PAY INSURANCE [id number] Private Health Insurance [id number] Private Health Insurance [id number] Unknown [id number] Social History Date Type Detail Facility Start: [facility]23-[facility]22 [facility] Work Phone: Start: 01-27-2014 None [facility] Start: 1975 Sex Assigned At Male [facility] Start: 02-23-2022 [facility] Medical Equipment Procedure Code Equipment Code Equipment Original Text Equipment Identifier Dates Total cholecystectomy with exploration of common bile duct Ligation clip, synthetic polymer, non-bioabsorbable [id number] [facility] Start: 02-23-2022 Total cholecystectomy with exploration of common bile duct Ligation clip, synthetic polymer, non-bioabsorbable [id number] FDA Start: 02-23-2022 Functional Status Date Assessment Result Facility 02-24-2022 Functional status Ambulates [facility] Work Phone: Mental Status Date Assessment Result Facility 02-24-2022 Cognitive function Voice/Name [facility] Work Phone: Evaluation note Note Date & Type Note Facility Evaluation note Diagnosis Onset Date Acute cholecystitis acute [facility] Work Phone: Evaluation note Note Date & Type Note Facility Evaluation note No assessment information availa ble [facility] Work Phone: Reason for referral (narrative) Note Date & Type Note Facility Reason for referral (narrative) No reason for referral information available [facility] Work Phone: Chief Complaint and Reason for Visit Chief Complaint ACUTE CHOLECYSTITIS ACUTE CHOLECYSTITIS Reason for Visit Acute cholecystitis Chief Complaint Admit Date CP April 07, 2025 12:4 2pm Family History Relationship Condition Age at Onset Recorded Date/T gabriel grandmother Myocardial infarction Unknown Hypertension Unknown Advance Directives Advance Directive Response Recorded Date/ Time Advance Directives No July 21, 2016 2:22pm Living Will No February 23, 2022 6 :35am Power of Portfolio Consultant No February 23, 2022 6:35am Advance Directive Response Recorded Date/ Time Advance Directives No July 21, 2016 2:22pm Summary Purpose Additional Source Comments Goals (unrecognized section and content) Goals may be documented in a n alternate sectionGoals may be documented in an alternate section (unrecognized sect ion and content) No Status Records Found INFORMATION SOURCE (unrecogn ized section and content) DATE CREATED AUTHOR 11/13/2024 [facility] Care Teams (unrecognized sec tion and content) Team Status: Active Member Role/Relationship Status Dates No Primary Care Physician Primary Care Provider Active Team Status: Inactive Member Role/Relationship Status Dates No Primary Care Physician Primary Care Provider Active Start: April 07, 2025 End: April 07, 2025 Ed Physician Provider Emergency Provider Active Start: April 07, 2025 End: April 07, 2025 FOR RECORDS PERTAINING TO PATIENTS WHO ARE OR HAVE BEEN ENROLLED IN A CHEMICAL DEPENDENCY/SUBSTANCEABUSE PROGRAM, SOME INFORMATION MAY BE OMITTED. This clinical summary was aggregated from multiple sources. Caution should be exercised in using it in the provision of clinical care. This summary normalizes information from multiple sources, and as a consequence, information in this document may materially change the coding, format and clinical context of patient data. In addition, data may be omitted in some cases. CLINICAL DECISIONS SHOULD BE BASED ON THE PRIMARY CLINICAL RECORDS. [facility]. provides no warranty or guarantee of the accuracy or completeness of information in this document.
== END 2025-04-07 13:25 | disposition left against medical advice (07) ==
LOC: ED 13:27
DX: Z53.21 Procedure and treatment not carried out due to patient leaving prior to being seen by health care provider (principal)
CPT/HCPCS: 80048; 84484; 85025; 93005; 99282